=== PATIENT | male | born 1945 | race Caucasian/White ===

== ENCOUNTER → 2023-04-11 12:22 | Outpatient (BNVA) | payer MEDICARE, OTHER, SELFPAY | PROVIDERS: Visit Provider Podiatrist Foot & Ankle Surgery | DX: M76.71 Peroneal tendinitis, right leg (principal); M21.41 Flat foot [pes planus] (acquired), right foot; M19.171 Post-traumatic osteoarthritis, right ankle and foot | CPT/HCPCS: 73630; 99204 ==

== ENCOUNTER 2023-05-23 14:20 | Outpatient (CLI) | payer MEDICARE, OTHER, SELFPAY | END 2023-05-23 14:21 | disposition home or self-care (01) | LOC: SPT 14:21 | PROVIDERS: Visit Provider Podiatrist Foot & Ankle Surgery | DX: M76.71 Peroneal tendinitis, right leg (principal); M21.41 Flat foot [pes planus] (acquired), right foot; M19.171 Post-traumatic osteoarthritis, right ankle and foot | CPT/HCPCS: 97760; 99213; L3030 ==

== ENCOUNTER → 2023-11-20 12:43 | Outpatient (BNVA) | payer MEDICARE, SELFPAY | PROVIDERS: PCP Family Medicine; Visit Provider Podiatrist Foot & Ankle Surgery | DX: M76.71 Peroneal tendinitis, right leg (principal); M21.41 Flat foot [pes planus] (acquired), right foot; M19.171 Post-traumatic osteoarthritis, right ankle and foot | CPT/HCPCS: 20550; J1100; J3301; J3490 ==

== ENCOUNTER → 2024-01-01 13:48 | Outpatient (BNVA) | payer MEDICARE, SELFPAY | PROVIDERS: PCP Family Medicine; Visit Provider Podiatrist Foot & Ankle Surgery | DX: M76.71 Peroneal tendinitis, right leg (principal); M21.41 Flat foot [pes planus] (acquired), right foot; M19.171 Post-traumatic osteoarthritis, right ankle and foot | CPT/HCPCS: 99213 ==

== ENCOUNTER → 2025-07-06 08:20 | Outpatient (BNVA) | payer MEDICARE, SELFPAY | PROVIDERS: PCP Family Medicine; Visit Provider Orthopaedic Surgery | DX: M17.12 Unilateral primary osteoarthritis, left knee (principal); M25.762 Osteophyte, left knee; Z79.01 Long term (current) use of anticoagulants; Z01.89 Encounter for other specified special examinations | CPT/HCPCS: 20610; 73560; 73565; 99204; J3301; J3490; J9999 ==

== ENCOUNTER → 2025-08-03 09:30 | Outpatient (BNVA) | payer MEDICARE, SELFPAY | PROVIDERS: PCP Family Medicine; Visit Provider Orthopaedic Surgery | DX: M17.12 Unilateral primary osteoarthritis, left knee (principal) | CPT/HCPCS: 20610; 99213; J7325 ==